=== PATIENT | male | born 1980 | race Caucasian/White ===

== ENCOUNTER 2023-04-22 18:44 | Emergency (ER) | payer SELFPAY ==
[~2023-04-22] VITALS: Ht 182.9 cm; Wt 63.5 kg
[2023-04-22] MEDS ORDERED: CLIN300C12 PO (19:46)
[2023-04-22] MEDS ORDERED: KETO10TA2 PO (19:46)
[2023-04-22 19:53] VITALS: BP 106/89; TEMP 98.8; O2SAT 99
== END 2023-04-22 19:54 | disposition home or self-care (01) ==
LOC: ER 18:48
DX: M79.642 Pain in left hand (principal); R07.89 Other chest pain; Z79.899 Other long term (current) drug therapy; V89.2XXA Person injured in unspecified motor-vehicle accident, traffic, initial encounter; Y93.89 Activity, other specified; Y92.89 Other specified places as the place of occurrence of the external cause; Y99.8 Other external cause status
CPT/HCPCS: 71045-TC; 73130-TC